=== PATIENT | female | born 1955 | race Caucasian/White ===

== ENCOUNTER → 2020-01-09 12:31 | Outpatient (CLI) | payer OTHER, SELFPAY ==
--- NOTE | ~2020-01-09 | XR_ITS ---
EXAMINATION: XR knee RT 3V DATE: 01/09/2020 12:46 INDICATION: Right knee pain. TECHNIQUE: 3 views of right knee were obtained. COMPARISON: None. FINDINGS: There is lateral subluxation of patella. No fracture. There is mild osteoarthritis of media l and lateral compartments and severe osteoarthritis of patellofemoral compartment. No knee joint eff usion. IMPRESSION: 1. Severe right knee osteoarthritis. Reviewed, dictated and finalized at location A.
--- NOTE | ~2020-01-09 | XR_ITS ---
EXAMINATION: XR knee LT 3V DATE: 01/09/2020 12:46 INDICATION: Left knee pain. TECHNIQUE: 3 views of left knee were obtained. COMPARISON: None. FINDINGS: Bone alignment is normal. No fracture. There is mild tricompartmental osteoarthritis. There is a small knee joint effusion. There is a 3 mm loose body in the knee joint posteriorly. IMPRESSION: 1. Mild left knee osteoarthritis. 2. Small left knee joint effusion with loose body. Reviewed, dictated and finalized at location A.
== END ==
PROVIDERS: PCP Family Medicine; Visit Provider Physician Assistant
DX: M17.0 Bilateral primary osteoarthritis of knee (principal); M25.462 Effusion, left knee
CPT/HCPCS: 73562

== ENCOUNTER 2021-05-15 09:52 | Outpatient (CLI) | payer MEDICARE, SELFPAY ==
--- NOTE | ~2021-05-15 | MM_ITS ---
EXAMINATION: MM screening noah BI w aida HISTORY: Screening mammogram TECHNIQUE: Craniocaudal and mediolateral oblique 3-D tomosynthesis images were obtained and synthetic 2-D images were generated. CAD analysis was submitted and interpreted. COMPARISON: 07/03/2019, 07/19/2017, 04/14/2016 bilateral screening mammogram examinations BREAST PARENCHYMAL COMPOSITION: There are scattered areas of fibroglandular density. FINDINGS: New 2.8 x 5.4 mm circumscribed opacity is noted in the lower outer right breast; diagnostic right noah mogram and targeted right breast ultrasound examination are recommended. Otherwise there is no evidence of suspicious mass, calcification, or architectural distortion to sugg est malignancy in either breast. There has been no other suspicious interval change. IMPRESSION: 1. New 2.8 x 5.4 mm circumscribed opacity in the lower outer right breast 2. Diagnostic right mammogram and targeted right breast ultrasound examination are recommended BI-RADS Category 0: Incomplete; need additional imaging evaluation Reviewed, dictated and finalized at location A. TYPE CASTER
--- NOTE | ~2021-05-15 | DEXA_ITS ---
Bone Density Report Name: Kaleigh Sprague Age: 65 Sex: Female Ethnicity: White Date of : 1955 Indication: postmenopausal; prior fracture; Referring Provider: MINESH, TIM Study: Bone densitometry was performed. Exam Date: May 15, 2021 Accession number: [id number] Bone Density: Region BMD T-score Z-score Classification AP Spine (L1-L4) 1.062 0.1 1.9 Normal Femoral Neck (Left) 0.769 -0.7 0.8 Normal Total Hip (Left) 0.949 0.1 1.3 Normal Total Hip Bilateral Avg 0.913 -0.2 1.0 Normal Femoral Neck (Right) 0.687 -1.5 0.0 Osteopenia Total Hip (Right) 0.877 -0.5 0.7 Normal World Health Organization criteria for BMD impression classify patients as: Normal (T-score at or above -1.0), Osteopenia (T-score between -1.0 and -2.5), or Osteoporosis (T-score at or below -2.5). 10-year Fracture Risk(1): Major Osteoporotic Fracture 13% Hip Fracture 1.1% Reported Risk Factors: [place] (), Neck BMD=0.687, BMI=41.4, previous fracture (1) FRAX(R) Version 3.08. Fracture probability calculated for an untreated patient. Fracture probability may be lower if the patient has received treatment. Previous Exams: Region Exam Age BMD T-score BMD Change BMD Change Date g/cm2 vs Baseline vs Previous AP Spine(L1-L4) 05/15/2021 65 1.062 0.1 -0.002(-0.2%)# 0.039(3.8%)* 07/19/2017 62 1.022 -0.2 -0.041(-3.9%)# -0.041(-3.9%)# 11/24/2010 55 1.063 0.1 Total Hip(Left) 05/15/2021 65 0.949 0.1 0.080(9.2%)# -0.005(-0.6%) 07/19/2017 62 0.955 0.1 0.085(9.8%)# 0.085(9.8%)# 11/24/2010 55 0.869 -0.6 Total Hip(Right) 05/15/2021 65 0.877 -0.5 0.030(3.5%)# -0.067(-7.1%)* 07/19/2017 62 0.944 0.0 0.097(11.4%)# 0.097(11.4%)# 11/24/2010 55 0.847 -0.8 *Denotes significance at 95% confidence level, LSC for AP Spine = 0.022 g/cm2, LSC for Total Hip = 0.027 g/cm2 Clinical Information Provided by Patient: Has had a low trauma fracture Has used the following medications: Vitamin D Patient maximum height was 61.5 Menopause Age: 51 No regular weight bearing exercise Drinks caffeinated beverages Onset of menses at age 13 Number of children 4 Impression: The patient has low bone mass, based on the Right Femoral Neck T-score. The patient has an estimated ten-year risk of hip fracture of 1.1% and an estimated ten-year risk of major fracture of 13%, based on the WHO FRAX algorithm. The patient has risk f
== END 2021-05-15 09:53 | disposition home or self-care (01) ==
PROVIDERS: PCP Family Medicine; Visit Provider Nurse Practitioner
DX: Z12.31 Encounter for screening mammogram for malignant neoplasm of breast (principal); Z78.0 Asymptomatic menopausal state; Z13.820 Encounter for screening for osteoporosis; R92.8 Other abnormal and inconclusive findings on diagnostic imaging of breast; M85.851 Other specified disorders of bone density and structure, right thigh
CPT/HCPCS: 77063; 77067; 77080

== ENCOUNTER 2021-05-30 11:40 | Outpatient (CLI) | payer MEDICARE, SELFPAY ==
--- NOTE | ~2021-05-30 | US_ITS ---
Please refer to diagnostic mammogram report dated 05/30/2021 for details. Reviewed, dictated and finalized at location A. RONMENTAL FIELD SERVICES TECHNICIAN
--- NOTE | ~2021-05-30 | MM_ITS ---
EXAMINATION: MM diagnostic noah RT w aida HISTORY: Right breast mass TECHNIQUE: Additional 3-D tomosynthesis images of the right breast were performed and synthetic 2-D i mages were generated. CAD analysis was submitted and interpreted. High resolution Limited right breas t ultrasound was performed. COMPARISON: 05/15/2021 BREAST PARENCHYMAL COMPOSITION: Breast composed of scattered areas of fibroglandular density. FINDINGS: MAMMOGRAPHIC FINDINGS: There is a small mass in the mid outer aspect of the right breast measuring 2 mm maximum dimension. N o suspicious calcifications or architectural distortion. ULTRASOUND: Limited right breast ultrasound: At 8:00, 3 cm from the nipple there is a 6 mm cyst corresponding to the mammographic finding. No suspicious masses to suggest malignancy. IMPRESSION: 1. No evidence for malignancy in the right breast. 2. Routine yearly screening mammogram and regular clinical breast examination are recommended. BI-RADS Category 2: Benign finding(s). Reviewed, dictated and finalized at location A. D MILLER IMPRESSION: 1. No evidence for malignancy in the right breast. 2. Routine yearly screening mammogram and regular clinical breast examination a re recommended. BI-RADS Category 2: Benign finding(s).
== END 2021-05-30 11:41 | disposition home or self-care (01) ==
LOC: ANHIMG 11:41
PROVIDERS: PCP Family Medicine; Visit Provider Obstetrics & Gynecology Gynecology
DX: R92.8 Other abnormal and inconclusive findings on diagnostic imaging of breast (principal)
CPT/HCPCS: 76642; 77061; 77065; G0279

== ENCOUNTER 2023-03-12 08:06 | Outpatient (CLI) | payer MEDICARE, SELFPAY | END 2023-03-12 08:07 | disposition home or self-care (01) | LOC: ANHAUDIO 08:07 | PROVIDERS: PCP Family Medicine; Visit Provider Otolaryngology | DX: H65.499 Other chronic nonsuppurative otitis media, unspecified ear (principal); H69.90 Unspecified Eustachian tube disorder, unspecified ear; H90.3 Sensorineural hearing loss, bilateral | CPT/HCPCS: 92557; 92567 ==

== ENCOUNTER 2023-04-19 14:22 | Outpatient (CLI) | payer MEDICARE, SELFPAY ==
--- NOTE | ~2023-04-19 | CT_ITS ---
EXAMINATION: CTA chest DATE: 04/19/2023 15:04 INDICATION: Family history of ischemic heart disease and aortic aneurysm TECHNIQUE: Computed tomographic angiography (CTA) of the chest was performed with 100 mL Omnipque-350 intravenous contrast. Maximum intensity projection 3D-reconstructions of the aorta and other arterie s were constructed by the technologist on a separate workstation. The dose-length product (DLP) was 4 77.55 mGy-cm. Automated exposure control and iterative reconstruction technique were employed. COMPARISON: None. FINDINGS: No aneurysm or dissection. There is calcified coronary artery atherosclerosis. There is mario cardial thinning of the left ventricular apex. There is mild dependent atelectasis. No pleural effusi on or pneumothorax. No pathologically enlarged thoracic lymph nodes are identified. The heart size is normal. The liver is diffusely low in attenuation when compared with the spleen, consistent with hep atic steatosis. There is mild thoracic spondylosis. IMPRESSION: 1. No aneurysm or dissection of the aorta. 2. Calcified coronary artery atherosclerosis with thinning of the left ventricular apex which could r eflect prior myocardial infarction. Reviewed, dictated and finalized at location L. ING OFFICER IMPRESSION: 1. No aneurysm or dissection of the aorta. 2. Calcified coronary artery atherosclerosis with thinning of the left ventricu lar apex which could reflect prior myocardial infarction.
[2023-04-19 14:57] LABS: Estimated Glomerular Filt Rate 45
== END 2023-04-19 14:23 | disposition home or self-care (01) ==
PROVIDERS: PCP Family Medicine; Visit Provider Internal Medicine Cardiovascular Disease
DX: Z13.6 Encounter for screening for cardiovascular disorders (principal); Z82.49 Family history of ischemic heart disease and other diseases of the circulatory system
CPT/HCPCS: 71275; Q9967

== ENCOUNTER 2023-05-10 10:10 | Outpatient (CLI) | payer MEDICARE, SELFPAY ==
--- NOTE | ~2023-05-10 | MM_ITS ---
EXAMINATION: MM screening noah BI w aida HISTORY: Screening mammogram TECHNIQUE: Craniocaudal and mediolateral oblique 3-D tomosynthesis images were obtained and synthetic 2-D images were generated. CAD analysis was submitted and interpreted. COMPARISON: 05/30/2021 diagnostic right mammogram and limited right breast ultrasound 05/15/2021 bilateral screening mammogram BREAST PARENCHYMAL COMPOSITION: There are scattered areas of fibroglandular density. FINDINGS: There is no evidence of suspicious mass, calcification, or architectural distortion to sugg est malignancy in either breast. There has been no suspicious interval change. IMPRESSION: 1. No mammographic evidence of malignancy. 2. Recommend routine screening mammography in one year. BI-RADS Category 1: Negative Reviewed, dictated and finalized at location A. RY DRIER
== END 2023-05-10 10:11 | disposition home or self-care (01) ==
LOC: ANHIMG 10:12
PROVIDERS: PCP Family Medicine; Visit Provider Nurse Practitioner
DX: Z12.31 Encounter for screening mammogram for malignant neoplasm of breast (principal)
CPT/HCPCS: 77063; 77067

== ENCOUNTER 2023-11-09 09:38 | Outpatient (CLI) | payer MEDICARE, SELFPAY ==
--- NOTE | ~2023-11-09 | NM_ITS ---
EXAMINATION: NM stress w perf spect multi DATE: 11/09/2023 12:08 INDICATION: Atherosclerotic heart disease of [place] coronary arteries. TECHNIQUE: Rest images were obtained following intravenous administration of 10.0 mCi Tc99m tetrofosm in (Myoview). The patient performed an exercise activity. At peak exercise, 33.0 mCi Tc99m tetrofosmi n (Myoview) was administered intravenously, and stress images were obtained. Data was reconstructed i nto short axis and horizontal and vertical long axis SPECT images. Gated SPECT images were also obtai travis. COMPARISON: Myocardial perfusion imaging 03/21/2013 FINDINGS: There is no definite reversible or fixed perfusion abnormality to suggest ischemia or infar ction. There is no segmental wall motion abnormality. Left ventricular ejection fraction measures > 70%. IMPRESSION: 1. No definite ischemia or infarct. 2. Normal left ventricular ejection fraction measuring >70%. Reviewed, dictated and finalized at location A.
--- NOTE | 2023-11-09 09:44 | EST_ITS ---
Patient Info Name: Kaleigh Sprague Age: 68 years : 1955 Gender: Female Ht: 61 in Wt: 198 lbs BSA: 2.01 m2 HR: 62 bpm BP: 132 / 96 mmHg Heart Rhythm: Sinus Rhythm Exam Date: 11/09/2023 10:31 AM Exam Location: Echo Lab Patient Status: Outpatient Admit Date: 11/09/2023 Staff Ordering Physician: Marlon Torres DO Attending Provider: Marlon Torres DO Exercise Technologist: Madelyn Murillo CT Exercise Physician: Marlon Torres DO Exam Type: CA stress test treadmill w NM Study Info Indications I25.10 - Atherosclerotic heart disease of [place] coronary artery without angina pectoris A nuclear stress test was performed. Summary 1. 1. Negative Yusuf exercise stress test for ischemic ST changes by ECG criteria. 2. 2. Reduced functional capacity, achieving 7 METs of workload. 3. 3. Appropriate HR response to exercise. 4. 4. Appropriate HR recovery at 1 minute post exercise. 5. 5 Nuclear scan to follow and will be reported separately. Please correlate with it. 6. 6. Patient informed of the above results. Protocol: Yusuf Stress ECG Details Stage: REST Duration (min): 1 min : 2 sec Speed (mph): 0.0 Grade (%): 0 HR (bpm): 64 SBP (mmHg): 132 DBP (mmHg): 96 METS: --- Stage: REST Duration (min): 5 min : 17 sec Speed (mph): 0.0 Grade (%): 0 HR (bpm): 70 SBP (mmHg): 132 DBP (mmHg): 96 METS: --- Stage: STAGE 1 Duration (min): 1 min : 0 sec Speed (mph): 1.7 Grade (%): 10 HR (bpm): 99 SBP (mmHg): 132 DBP (mmHg): 96 METS: --- Stage: STAGE 1 Duration (min): 2 min : 0 sec Speed (mph): 1.7 Grade (%): 10 HR (bpm): 113 SBP (mmHg): 132 DBP (mmHg): 96 METS: --- Stage: STAGE 1 Duration (min): 3 min : 0 sec Speed (mph): 1.7 Grade (%): 10 HR (bpm): 118 SBP (mmHg): 160 DBP (mmHg): 98 METS: --- Stage: STAGE 2 Duration (min): 1 min : 0 sec Speed (mph): 2.5 Grade (%): 12 HR (bpm): 131 SBP (mmHg): 160 DBP (mmHg): 98 METS: --- Stage: STAGE 2 Duration (min): 2 min : 0 sec Speed (mph): 2.5 Grade (%): 12 HR (bpm): 137 SBP (mmHg): 176 DBP (mmHg): 91 METS: --- Stage: STAGE 2 Duration (min): 2 min : 20 sec Speed (mph): 2.5 Grade (%): 12 HR (bpm): 140 SBP (mmHg): 176 DBP (mmHg): 91 METS: --- Stage: RECOVERY Duration (min): 0 min : 39 sec Speed (mph): 0.0 Grade (%): 0 HR (bpm): 127 SBP (mmHg): 176 DBP (mmHg): 91 METS: --- Stage: RECOVERY Duration (min): 1 min : 39 sec Speed (mph): 0.0 Grade (%): 0 HR (bpm): 102 SBP (mmHg): 176 DBP (mmHg): 91 METS: --- Stage: RECOVERY Duration (min): 2 min : 39 sec Speed (mph): 0.0 Grade (%): 0 HR (bpm): 90 SBP (mmHg): 176 DBP (mmHg): 91 METS: --- Stage: RECOVERY Duration (min): 3 min : 11 sec Speed (mph): 0.0 Grade (%): 0 HR (bpm): 89 SBP (mmHg): 193 DBP (mmHg): 87 METS: --- Rest HR: 70 bpm Peak HR: 141 bpm Rest Sys BP: 132 mmHg Peak Sys BP: 193 m
== END 2023-11-09 09:39 | disposition home or self-care (01) ==
PROVIDERS: PCP Family Medicine; Visit Provider Internal Medicine Cardiovascular Disease
DX: I25.10 Atherosclerotic heart disease of native coronary artery without angina pectoris (principal)
CPT/HCPCS: 78452; 93017; A9502

== ENCOUNTER 2024-10-09 14:06 | Outpatient (CLI) | payer MEDICARE, SELFPAY ==
--- NOTE | ~2024-10-09 | MM_ITS ---
EXAMINATION: MM screening noah BI w aida HISTORY: Screening mammogram, family history of breast cancer in her sister. TECHNIQUE: Craniocaudal and mediolateral oblique 3-D tomosynthesis images were obtained and synthetic 2-D images were generated. CAD analysis was submitted and interpreted. COMPARISON: 05/10/2023, 05/15/2021 BREAST PARENCHYMAL COMPOSITION:Not Dense. The breasts are almost entirely fatty FINDINGS: No suspicious mass, calcification, or architectural distortion are identified in either lamont ast to suggest malignancy. There has been no suspicious interval change. IMPRESSION: No mammographic evidence of malignancy. Recommend routine screening mammography in one year. BI-RADS Category 1: Negative Reviewed, dictated and finalized at location .
--- OUTSIDE RECORDS SUMMARY | 2024-10-09 16:10 | XMS_ITS | Encounter Summary ---
Author Organization [facility] Health Address [address] [place] [address] Care Team Providers Care Architectural Technician Name Role Phone Chrissy Harris MD Primary Care Provider [phone] Encounter Details Date Type Department Care Team (Late st Contact Info) Description 07/13/2019 Lab Requisition [facility] [address] [place] [address] Ale Chacon DO [address] [place] [address] Social History Tobacco Use Types Packs/Day Years Used Date Smoking Tobacco: Never Assessed Comments Unknown Sex and Gender Information Value Date Recorded Sex Assigned at Not on file Legal Sex Female 3:55 PM OPERATING ROOM SURGICAL TECHNOLOGIST Gender Identity Not on file Sexual Orientation Not on file documented as of this encounter Plan of Treatment Not on file documented as of this encounter Procedures Procedure Name Priority Date/Time Associated Diagnosis Comments DERMATOPATHOLOGY Routine 07/12/2019 12:0 0 AM OPERATING ROOM SURGICAL TECHNOLOGIST documented in this encounter Results * DERMATOPATHOLOGY (07/12/2019 12:00 AM OPERATING ROOM SURGICAL TECHNOLOGIST) Case Report Dermatopathology Report Case: [id number] Authorizing Provider: Ale Chacon DO Collected: 07/12/2019 12:00 AM Ordering Location: [facility] Received: 07/13/2019 01:41 PM Pathologist: Bernardino Coppola MD Specimens: A) - Skin, right arm B) - Skin, right buttock 0 3:20 PM OPERATING ROOM SURGICAL TECHNOLOGIST DERMATOPATHOLOGY LABORATORY Final Diagnosis Specimen A. SKIN, right arm: BENIGN VERRUCOUS KERATOSIS (L82.1) Specimen B. SKIN, right buttock: INTRADERMAL MELANOCYTIC NEVUS (D22.5) 0 3:20 PM OPERATING ROOM SURGICAL TECHNOLOGIST DERMATOPATHOLOGY LABORATORY Clinical History A: ISK R/O NMSC. B: Acr vs IDN. 0 3:20 PM OPERATING ROOM SURGICAL TECHNOLOGIST DERMATOPATHOLOGY LABORATORY Gross Description Specimen A: Received is one formalin filled container labeled with the patient's name and designated right arm. The specimen consists of a shave measuring [id number]. Jar 0. Specimen B: Received is one formalin filled container labeled with the patient's name and designated right buttock. The specimen consists of a shave measuring [id number]. Jar 0. 0 3:20 PM OPERATING ROOM SURGICAL TECHNOLOGIST DERMATOPATHOLOGY LABORATORY Microscopic Description Specimen A. SKIN, right arm: Sections show hyperkeratosis, papillomatosis, hypergranulosis, and acanthosis. These histological findings can be seen in a verruca vulgaris or a seborrheic keratosis. Specimen B. SKIN, right buttock: There are nests of cytologically bland melanocytes within the dermis that mature with depth. 0 3:20 PM OPERATING ROOM SURGICAL TECHNOLOGIST DERMATOPATHOLOGY LABORATORY Disclaimer An external and internal positive and negative controls are appropriate for the histochemical, immunohistochemical and immunofluorescence stain(s) in this case (if any), except where stated explicitly. The performance characteristics of the stain(s) cited in this report were developed and its performance characteristic determined by the Dermatopathology Laboratory at [facility], directed by Dr. Karon Coppola. These tests need not be, and therefore are not, approved by the [place] Food and Drug Administration. The tests are used for clinical purposes. Billing Codes Specimen Charges Stain Charges 30501 01630 1 1 0 3:20 PM OPERATING ROOM SURGICAL TECHNOLOGIST DERMATOPATHOLOGY LABORATORY Embedded Images 0 3:20 PM OPERATING ROOM SURGICAL TECHNOLOGIST DERMATOPATHOLOGY LABORATORY Pathology/Cytology TISSUE SPECIMEN FROM SKIN / Unknown 07/12/2019 07/13/2019 1:41 PM OPERATING ROOM SURGICAL TECHNOLOGIST Miscellaneous samples (specimen) TISSUE SPECIMEN FROM SKIN / Unknown 07/12/2019 07/13/2019 1:41 PM OPERATING ROOM SURGICAL TECHNOLOGIST Ale Chacon DO LAB - PATHOLOGY/CYTOLOGY ORDERABLES Final Result DERMATOPATHOLOGY LABORATORY [facility] - Department of Dermatology [address] [place] [address], [address] Floor Lab [address] [phone] documented in this encounter Visit Diagnoses Not on filedocumented in this encounter Care Teams Architectural Technician Relationship Specialty Start Date End Date Chrissy Harris MD [address] [place] [address] PCP - General 07/12/19 documented as of this encounter
--- OUTSIDE RECORDS SUMMARY | 2024-10-09 16:10 | XMS_ITS | Clinical Summary ---
Author Organization [facility] [employer] Address [address] [place] [address] Care Team Providers Care Machine Assistant Name Role Phone Chrissy Harris MD Primary Care Provider [phone] Source Comments [facility],non-owned Affiliates and Associated Physician Practices is amultiple site organization consisting of ambulatory clinics and hospital sitesin [place], [place], [place] and [place]. This disclosure is being madepursuant to the Care Everywhere program and may not contain all information available regarding this patient. Last updated 18.[facility] [employer] Allergies Active Allergy Reactions Criticality Noted Date Comments Morphine Rash Medium 02/05/2020 Medications * Be aware that medications may not be up to date on this document. Alwaysverify current medications with the patient. vitamin D (D--ANDREW) 10 MCG (400 UNITS)/ML solution Active AMLODIPINE BENZOATE PO Active atorvastatin (LIPITOR) 20 MG tablet Take 20 mg by mouth at bedtime Active levothyroxine (SYNTHROID) 50 MCG tablet Take 50 mcg by mouth daily before breakfast Active telmisartan (MICARDIS) 20 MG tablet Take 20 mg by mouth once daily Active SUMAtriptan Succinate (IMITREX PO) Active Social History Tobacco Use Types Packs/Day Years Used Date Smoking Tobacco: Never Smokeless Tobacco: Never Alcohol Use Standard Drinks/Week Comments Never 0 (1 standard drink = 0.6 oz pur e alcohol) AUDIT-C Answer Date Recorded Q1: How often do you have a drink containing alc ohol? Never 02/05/2020 Average Number of Drinks Not on file 020 Frequency of Binge Drinking Not on file 01/13 Comments No Sex and Gender Information Value Date Recorded Sex Assigned at Not on file Legal Sex Female 3:55 PM CUSTOMER FIELD REPRESENTATIVE Gender Identity Not on file Sexual Orientation Not on file Last Filed Vital Signs Vital Sign Reading Time Taken Comments Blood Pressure 132/84 02/05/2020 2:31 PM CDT Pulse 74 02/05/2020 2:31 PM CDT Temperature 36.9 C (98.4 F) 02/05/2020 2:31 PM CDT Respiratory Rate 16 02/05/2020 2:31 PM CDT Oxygen Saturation 97% 02/05/2020 2:31 PM CDT Inhaled Oxygen Concentration - - Weight 93 kg (205 lb) 02/05/2020 2:31 PM CDT Height 154.9 cm (5' 1 ) 02/05/2020 2:31 PM CDT Body Mass Index 38.73 02/05/2020 2:31 PM CDT Plan of Treatment Health Maintenance Due Date Last Done Comments BONE DENSITY TESTING 1955 COLOGUARD (AGES 45-75) - COL ON CA SCREENING 1955 COLON MONITORING 1955 COLONOSCOPY - COLON CA SCREENING 1955 CT COLONOGRAPHY - COLON CA SCREENING 1955 Colorectal Cancer Screening 1955 FIT - COLON CA SCREENING 1955 FLEX SIG - COLON CA SCREENING 1955 MAMMOGRAM 1955 HEPATITIS C SCREENING 06/05/1974 DTAP/TDAP/TD VACCINES (1 - Tdap) 1975 PNEUMOCOCCAL VACCINE 50+ (1 of 1 - PCV) 2006 ZOSTER VACCINE (1 of 2) 2006 SCREENING FOR DIABETES 02/05/2020 COVID-19 VACCINE ( - 2023-2 5 season) 2024 DEPRESSION SCREENING 06/14/2024 INFLUENZA VACCINE (Season Ended) 2025 Respiratory Syncytial Virus (RSV) Vaccine Pt: or over 60 yrs (1 - 1-dose 75+ series) 2031 HEPATITIS B VACCINE Aged Out No longe r eligible based on patient's age to complete this topic HIB VACCINE Aged Out No longer eligi ble based on patient's age to complete this topic HPV VACCINE Aged Out No longer eligi ble based on patient's age to complete this topic MENINGOCOCCAL (Group B) VACC INE SHARED DECISION-MAKING Aged Out No longer eligibl e based on patient's age to complete this topic MENINGOCOCCAL GROUPS A/C/Y/W VACCINE Aged Out No longer eligible b ased on patient's age to complete this topic Insurance [facility] Member Subscriber Plan / Payer (Ef fective 2019-Present) Name:Yany Sprague Relation to Subscriber:Self Name:YANY SPRAGUE Payer ID:[id number] (NAIC) Type:Tenant [employer] Address: [place] [phone] [facility] Care Teams Machine Assistant Relationship Specialty Start Date End Date Chrissy Harris MD [address] [place] [id number] PCP - General 07/12/19
== END 2024-10-09 14:07 | disposition home or self-care (01) ==
LOC: ANHIMG 14:09
PROVIDERS: PCP Family Medicine; Visit Provider Obstetrics & Gynecology Gynecology
DX: Z12.31 Encounter for screening mammogram for malignant neoplasm of breast (principal)
CPT/HCPCS: 77063; 77067